=== PATIENT | male | born 1990 | race Caucasian/White ===

== ENCOUNTER 2018-07-15 16:06 | Emergency (ER) | payer SELFPAY ==
--- NOTE | 2018-07-15 16:52 | RAD ---
XR Hand Lt 3 View STANDARD: 07/15/2018 4:34 PM CLINICAL INDICATION: Left hand laceration COMPARISON: None. TECHNIQUE: 3 views. Laterality: Left hand. FINDINGS: Bones: No acute fracture or subluxation is present. There is a radiopaque band overlying the long fi nger proximal phalangeal shaft is slightly limits image detail. Joints: Normal. Soft Tissue: No radiopaque foreign body.. IMPRESSION: No acute osseous abnormality..
== END 2018-07-15 17:12 | disposition home or self-care (01) ==
LOC: NAV ERS 16:06
DX: S61.213A Laceration without foreign body of left middle finger without damage to nail, initial encounter (principal); S61.215A Laceration without foreign body of left ring finger without damage to nail, initial encounter; F17.210 Nicotine dependence, cigarettes, uncomplicated; W26.8XXA Contact with other sharp object(s), not elsewhere classified, initial encounter
CPT/HCPCS: 12001